=== PATIENT | male | born 1955 ===

== ENCOUNTER 2018-10-04 08:48 | Outpatient (CLI) | payer OTHER, BC | END 2018-10-04 08:49 | disposition home or self-care (01) | LOC: C.PAT 08:48 | DX: S93.622A Sprain of tarsometatarsal ligament of left foot, initial encounter (principal); S93.422A Sprain of deltoid ligament of left ankle, initial encounter; S93.432A Sprain of tibiofibular ligament of left ankle, initial encounter; S82.842A Displaced bimalleolar fracture of left lower leg, initial encounter for closed fracture; S82.832A Other fracture of upper and lower end of left fibula, initial encounter for closed fracture ==

== ENCOUNTER 2018-10-10 06:21 | Day surgery (SDC) | payer OTHER, BC ==
[2018-10-04 09:11] VITALS: BMI 31.9
[2018-10-10 07:10] VITALS: RESP 18; TEMP 97
[2018-10-10] MEDS ORDERED: ceFAZolin IV 2 gm in Dextrose 2 GM/50 ML BAG IVPB ONE (07:26)
[2018-10-10] MEDS ORDERED: Propofol 10 mg/ml Inj (20 ML) ONE (07:32)
[2018-10-10] MEDS ORDERED: Rocuronium 10 mg/ml (5 ml) ONE (07:33)
[2018-10-10] MEDS ORDERED: Midazolam 2 MG/2 ML VIAL ONE (07:34)
[2018-10-10] MEDS ORDERED: Ropivacaine 0.5% PF (20 ml) inj INJ ONE (09:48)
[2018-10-10] MEDS ORDERED: Labetalol 5mg/ml (4ml) IVP PRN (10:41)
[2018-10-10] MEDS: HYDROmorphone 0.5 mg/0.5 ml ISec IVP PRN ×4 (10:51→11:25)
[2018-10-10] MEDS ORDERED: HYDROmorphone 0.5 mg/0.5 ml ISec ONE ×2 (11:05→11:11)
--- NOTE | 2018-10-10 11:13 | PCM.SURG1 ---
Surgeon's Initial Post Op Note - Surgeon's Notes Surgeon: Anthony Esposito MD Consulting Practice Manager: Milton Lewis PA-C Type of Anesthesia: General Endo Pre-Operative Diagnosis: Left ankle/foot/Leg: #1 sydesmotic tear with grade 3 instability. #2 deltoid high grade partial tear with grade 2-3 instability. #3 Lis Franc Ligament/ complex partial tear/sprain (stable). #4 posterior maleolus min displaced fracture. #5 fibular head/ neck min displaced fracture. #6 ATFL partial tear. #7 distal tibia non-displaced distal lateral / volkman's fragment fracture Operative Findings: Left ankle/foot/Leg: #1 sydesmotic tear with grade 3 instability. #2 deltoid high grade partial tear with grade 2-3 instability. #3 Lis Franc Ligament/ complex partial tear/sprain (stable). #4 posterior maleolus min displaced fracture. #5 fibular head/ neck min displaced fracture. #6 ATFL partial tear. #7 distal tibia non-displaced distal lateral / volkman's fragment fracture. #8 peroneal brevis tendon longitudinal tear. #9 intrasubstance ganglion cyst peroneal brevis tendon Post-Operative Diagnosis: Left ankle/foot/Leg: #1 sydesmotic tear with grade 3 instability. #2 deltoid high grade partial tear with grade 2-3 instability. #3 Lis Franc Ligament/ complex partial tear/sprain (stable). #4 posterior maleolus min displaced fracture. #5 fibular head/ neck min displaced fracture. #6 ATFL partial tear. #7 distal tibia non-displaced distal lateral / volkman's fragment fracture. #8 peroneal brevis tendon longitudinal tear. #9 intrasubstance ganglion cyst/mass peroneal brevis tendon Operation Performed: Left ankle/foot/leg Open: #1 syndesmotic tear reduction & internal fixation/repair. #2 evaluation of LisFranc ligament under anesthesia/flouroscopy (stress exam= stable injury). #3 closed tx Deltoid ligament tear/ instability under anesthesia. #4 closed tx alton equiv fx (posterior mal fx/ deltoid tear - medial widening) with manipulation. #5 closed tx distal tibia intra-articular lateral - Volkman fragment fx with manipulation. #6 closed tx fibular neck fx with manipulation. #7 primary repair peroneal brevis tendon tear. #8 excisional biopsy/recstion ganglion cyst intrasubstance peroneal brevis tendon. #9 placement in well padded long leg cast Specimen/Specimens Removed: specimen= cyst/mass sent to path. tourniquet time= 10min at 300mmHg. complications= none. Implants= Arthrex syndesmotic tight rope system x2, buttress plate 2-hole x1. fiberwire surture for peroneal tendon repair Estimated Blood Loss: EBL {In ML}: 10 Blood Products Given: N/A Drains Used: No Drains Post-Op Condition: Good Date of Surgery/Procedure: 10/10/18 Time of Surgery/Procedure: 11:26
[2018-10-10 12:39] VITALS: BP 180/80; PULSE 90; O2SAT 100
--- NOTE | 2018-10-11 14:01 | RAD ---
Date of service: 10/10/2018 PROCEDURE: Intraoperative Fluoroscopy. HISTORY: LT ANKLE SYNDESMOTIC TEAR FINDINGS: Fluoroscopic assistance was provided for left ankle syndesmosis repair. Please refer to the operative report from PIA Lay , MD MEERA.
--- NOTE | 2018-10-22 17:18 | OP ---
PROCEDURE DATE: 10/10/2018 PREOPERATIVE DIAGNOSES: Left ankle/foot/le. Syndesmotic tear with grade 3 instability (acute injury). 2. Deltoid high-grade partial tear with grade 2 to 3 instability. 3. Lisfranc ligament/complex partial tear/sprain (stable). 4. Posterior malleolus minimally displaced fracture. 5. Fibular head/neck minimally displaced fracture. 6. Anterior talofibular ligament partial tear with instability. 7. Distal tibia nondisplaced distal posterolateral fracture/Volkmann fragment fracture. POSTOPERATIVE DIAGNOSES: Left ankle/foot/le. Syndesmotic acute tear with grade 3 instability. 2. Deltoid high-grade partial tear with grade 2 to 3 instability/ medial widening. (resulting bimalleolar equivalent fracture) 3. Lisfranc ligament/complex partial tear/sprain (stable). 4. Posterior malleolus large fragment, longitudinal, minimally displaced fracture. 5. Fibular head and neck minimally displaced comminuted, oblique fracture. 6. Anterior talofibular ligament partial tear with grade 1 to 2 instability. 7. Distal tibia min-displaced, unstable distal tibia intra-articular, lateral Volkmann fragment fracture. 8. Peroneal brevis tendon longitudinal tear. 9. Intrasubstance ganglion cyst/mass peroneal brevis tendon. 10. ACL partial tear with grade 2- 3 instability. PROCEDURE: Left ankle/foot/leg open: 1. Syndesmotic tear reduction and open internal fixation/repair. 2. Evaluation of Lisfranc ligament under anesthesia and fluoroscopic imaging (stress exam=stable injury). 3. Evaluation of knee / ACL partial tear under anesthesia. 4. Closed treatment bimalleolar equivalent fracture (posterior malleolus fracture with deltoid tear-medial widening) with manipulation under anesthesia. 5. Closed treatment distal tibia intraarticular lateral-Volkmann fragment intra-articular fracture with manipulation under anesthesia. 6. Closed treatment fibula neck and head fracture with manipulation under anesthesia. 7. Primary repair peroneal brevis tendon tear. 8. Excisional biopsy/resection ganglion cyst from the intrasubstance peroneal brevis location at the longitudinal tear. 9. Placement in a well-padded long-leg cast. SURGEON: Cate Cruz MD BIT WELDER: Milotn Lewis PA-C. JUSTIFICATION FOR BIT WELDER: Milton Lewis is a certified physician assistant news director whose skilled surgical services were absolute necessity for successful completion of the procedure as he provided skilled surgical assistance with positioning of the patient, positioning of extremity, management of the surgical viveros, retraction of neurovascular structures, surgical approach to the syndesmosis, preparation of distal fibula and distal tibia including placement of TightRope passage tunnels, placement of periarticular reduction clamp and reduction of syndesmosis space, passage of distal and proximal TightRope, syndesmotic fixation devices with a 2-hole lateral buttress plate, wound closure, multiple closed reductions including closed treatment bimalleolar fracture equivalent, closed treatment of deltoid ligament tear/instability, closed treatment ATFL tear/instability, closed treatment Lisfranc ligament partial tear, closed treatment fibula neck fracture with manipulation, primary repair of peroneal brevis tendon and excision of biopsy of the ganglion cyst that was intrasubstance at the location of the tear, placement of a well-padded long-leg cast. Milton Lewis was present for the entire case and was an absolute necessity for successful completion of the procedure. TYPE OF ANESTHESIA: General endotracheal anesthesia, a postop regional nerve block was not done due to the presence of a long-leg cast. SPECIMEN: Peroneal brevis cyst/mass sent to pathology. TOURNIQUET TIME: 10 minutes at 300 mmHg (tourniquet was deflated after 10 minutes and never re-inflated). COMPLICATIONS: None. SPECIMEN: Cyst/mass from peroneal brevis tendon sent to pathology. ESTIMATED BLOOD LOSS: 10 mL. DRAINS: None. DISPOSITION: The patient was extubated and transferred to PACU in stable condition and tolerated the procedure well. IMPLANTS: [employer] syndesmotic TightRope fixation system x2, 2-hole buttress plate x1, multiple FiberWire suture utilized for primary peroneal tendon repair. INDICATIONS FOR SURGERY: The patient is a 63-year-old male with a past medical history significant for hypertension, hypercholesterolemia, history of cardiac valve replacement in 2012, who presented to the office under my care for the first time on 09/25/2018 with left foot, ankle, leg/tib-fib, knee pain since an injury at work on 09/19/2018. This is a [place] Workman's Comp case with a date of injury on 09/19/2018. 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 He states that while at work on 09/19/2018, he slipped on ice landing on his left foot/ankle/leg resulting in an immediate 10/10 pain localized to the left foot/ankle/leg/knee with inability to weight bear on the left lower extremity. He went to the emergency room at [facility] the same day, after review of imaging and evaluation by ER staff, he was diagnosed with multiple contusions and sprains. He was instructed to follow up with an orthopedic surgeon as an outpatient and was placed in a posterior and U splint, given crutches, instructed to be strict nonweightbearing to the left lower extremity. The splint was removed and it was very obvious that he had severe swelling that needed to dramatically improve prior to any surgical intervention. Left ankle nonweightbearing x-rays, three-views: Joint spaces well-maintained, normal alignment, no obvious evidence of DJD, there was significant medial joint space widening, there was significant syndesmotic widening, there was a questionable fracture line at the posterior malleolus seen as a sagittal split with a large posterior malleolus fragment, minimally displaced. External rotation stress view of the left ankle was carried out by me in the office on 09/25/2018, which showed significant syndesmotic widening and medial joint space widening with the external rotation stress view. Left foot x-rays, attempted weight bearing views, joint spaces well-maintained, normal alignment, no obvious evidence of DJD, there was no Lisfranc widening seen or elevation of base of second metatarsal. Left leg/tib-fib x-rays: Normal alignment, no obvious evidence of any significant DJD. Left knee x-rays: Joint space was well maintained, normal alignment, no obvious evidence of DJD, there was comminuted, oblique minimally displaced fracture of the fibular neck extending into the head. Physical examination left foot and ankle:consistent with syndesmotic pain, Lisfranc ligament and Lisfranc joint pain, fibular head pain, posterior compartment/calf tenderness, he had significant swelling at the foot and ankle at least 2+ swelling compared to contralateral foot and ankle. 2+ anterior drawer with soft endpoint, 2+ lateral talar tilt, 2-3+ deltoid instability Physical examination left knee: 1+ swelling, + + tenderness to palpation at the fibular head and neck as well as medial joint lineno warmth no erythema, skin intact, ACL instability (mainly anterior medial bundle instability)with 2-3+ anterior boat finisher external rotation with a soft endpoint, 1-2+ anterior boat finisher neutral and internal rotation with a soft endpoint, 1-2+ Izabel, negative posterior drawer, 1+ pivot shift, limited range of motion due to pain and swelling positive Royal medial and lateral. He admitted that he was noncompliant with the nonweightbearing because he could not figure out how to use the crutches safely and correctly. On initial presentation in the office, he was referred for stat MRI left foot, left ankle, left tib-fib, left knee prior to placement of any hardware to allow for evaluation of the left foot to evaluate the Lisfranc injury and determine if it is a complete tear or if surgical intervention is indicated, stat MRI of the ankle to evaluate chondral surface distal tibia and talar dome as well as determine the degree of involvement of the distal tibial articular surface with the posterior malleolus fracture and indications for fixation of the posterior malleolus fracture, evaluate the ATFL and deltoid ligaments as well. Stat MRI of the leg/tib-fib was carried out to evaluate for the gastroc pain and rule out gastroc intrasubstance muscle tear. Left knee stat MRI was ordered to evaluate the medial and lateral menisci as well as the ACL and chondral surfaces, evaluate and better understand the fibular neck and head fracture. He was educated at length on crutch use and was actually given a prescription for a [id number] walker as well as a knee scooter. He underwent the MRIs and returned to review the MRIs at length in the office. On his initial office visit, after undergoing the external rotation stress exam and seeing the degree of swelling and the pain that the patient was in, he was fitted and placed in a fracture boot to allow for ice and elevation. He was not placed in a cast because I did not think it was safe at that [id number]. He followed up in the office on 10/02/2018 after undergoing multiple MRIs and repeat external rotation stress view of the left ankle showed that the syndesmosis was significantly worsened with significantly worst syndesmotic widening and medial joint space widening present on external rotation stress views. MRI left knee done at [facility] on September 28, 2018 was read as: 1. Complex tear posterior horn and body medial meniscus 2. Intermediate grade/partial thickness tear ACL 3. Grade 1 sprain MCL 4. Trabecular fracturing within fibular neck 5. Articular chondrosis 6. Small joint effusion and small Melchor cyst On my review of the left knee MRI, there was significant signal change within the periphery of the lateral meniscus with possible peripheral lateral meniscal tear. The ACL did appear to have a significant acute injury with both bundle showing signal change throughout and prominent signal change at the proximal attachment of the anterior medial bundle at the femoral condyle indicating most likely anterior medial bundle complete avulsion with good quality ACL fibers present. No full-thickness chondral defects seen. Plica per bands present. Complex medial meniscal tear seen. MRI left leg/tib-fib done at [facility] done on September 28, 2018 was read as: 1. Appearance in keeping with strain and low-grade partial tear of gastroc that myotendinous junction, more prominent in the lateral gastroc muscle than the medial gastroc muscle 2. No muscle retraction. No hematoma 3. Fracture through fibular neck with surrounding bone marrow edema and trabecular microfractures/comminution On my review of the left leg MRI, there was indeed gastroc tearing. MRI left foot done at [facility] on September 27, 2018 was read as: 1. Soft tissue swelling and edema within foot most pronounced dorsally 2. Grade 1 sprain Lisfranc ligament 3. No evidence of fracture, malalignment or tendon tear in the mid to forefoot on my review of the left foot MRI, there was indeed signal change at the Lisfranc ligament with no complete tear seen. MRI left ankle done at [facility] on September 27, 2018 was read as: 1. Vertically oriented fracture through posterior malleolus 2. Moderate to marked ankle sprain including grade 2 sprain of the anterior and posterior talofibular ligaments, grade 2 sprain of deltoid ligament 3. High-grade spraidesmotic ligament with high-grade partial tear of the anterior syndesmotic ligament 4. Mild to moderate changes of peroneal synovitis with intermediate grade partial thickness tear peroneus brevis On my review of the left ankle MRI, the anterior syndesmotic ligament appeared completely torn, the deltoid ligament appeared to be near completely torn with significant attenuation, peroneal brevis partial tear. The posterior malleolus fracture was indeed vertically oriented with minimal displacement. There was a secondary fracture line representing the Volkman fragment at the posterior lateral aspect of the distal tibial articular surface at the attachment of the syndesmosis. There also appeared to be a cystic structure within the peroneal tendon brevis. He was indicated for surgery for the left lower extremity consisting of open syndesmotic repair/fixation, evaluation of the Lisfranc ligament under anesthesia and fluoroscopic imaging with a stress examination to be performed, and if indicated, closed reduction and fixation of the Lisfranc ligament, possible primary deltoid ligament repair versus closed treatment with manipulation and placement in the long-leg cast, closed treatment distal tibia intraarticular distal lateral fracture/Volkmann fragment fracture with manipulation and placement in a long-leg cast, closed treatment of bimalleolar equivalent fracture consisting of the posterior malleolus fracture with a combination of a deltoid tear with medial widening and closed treatment of fibular neck and head fracture with manipulation and placement in a long-leg cast, placement in a well-padded long-leg cast at the end of the procedure and all related indicated procedures on the left lower extremity. He has good working knowledge of the [place] language but a Surinamese-speaking ice plant operator was used discussions about surgery and risks, benefits, alternatives as well as treatment plan to minimize the chances of him missing the details and maximizing his understanding of the treatment options, risks, diagnosis, and the procedures to be done. 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 After answering all his questions, he stated that he understood the risks and wished to proceed with surgery with additional risks including loss of function, loss of limb, stiffness. He watched surgical animation videos and diagnosis animation videos in Surinamese at length and stated that he had a good understanding of the procedure as well as his multiple diagnoses. I emphasized with him the need for compliance with the postop rehabilitation protocol especially with his complex injury spectrum, he stated with the use of a Surinamese speaking ice plant operator that he had a good understanding of the need for compliance with the rehab protocol in order to maximize the chance of having successful outcome after surgery. He was referred to his primary care doctor for preadmission testing and preoperative medial clearance. This was obtained without any difficulty. He was scheduled for the surgery on 10/10/2018 at [facility] PROCEDURE IN DETAIL: The patient was identified in the preoperative holding area and the left ankle/knee were marked for surgery. Once again as described above, the risks, benefits, and alternatives of surgery were discussed at length with the patient with the use of a Surinamese-speaking ice plant operator, all questions were answered and final informed consent was obtained. After a brief discussion with anesthesia staff, the patient was taken to the operating room and placed in a well-padded operating room table with a radiolucent lower extremity extension and all bony prominences and superficial neurovascular structures well-padded. An initial timeout was done with the surgeon, anesthesia staff, OR staff that the patient, procedure being done, and extremity being operated on. General anesthesia was administered with difficulty or complication. Perioperative IV antibiotics were administered. Examination under anesthesia and fluoroscopy was then carried out. EXAMINATION UNDER ANESTHESIA: LEFT knee: No swelling no warmth no erythema, skin intact, full range of motion compared to contralateral knee. There was significant ACL instability with 3+ anterior boat finisher external rotation with a soft endpoint, 2-3+ anterior boat finisher neutral and internal rotation with a soft endpoint,1-2+ Izabel with a firm endpoint, 1+ pivot shift, negative posterior drawer, negative reverse Izabel, negative reverse pivot shift, negative posterior lateral corner drawer, negative recurvatum, negative dial test. No opening to medial or lateral joint line at 0 or 30 varus or valgus stress. Patella with normal tracking, no crepitance, reproducible plica band engaging/symptomatic at 30 flexion throughout flexion arc. No patellar maltracking or instability. There was crepitance at the fibular head and neck as well. LEFT ankle: no swelling, no warmth, no erythema, no deformity, skin intact. There was 3+ anterior drawer with soft endpoint, 1+ talar tilt with firm endpoint, 2+ medial talar tilt. Full range of motion compared to contralateral ankle. EXAMINATION UNDER FLUOROSCOPY: LEFT knee: There was a comminuted, oblique displaced fibular neck fracture with extension into the head, unstable. LEFT ankle: Dynamic fluoroscopic imaging with the ankle joint at 90/neutral was taken and the mortise view while an external rotation stress was applied. Pre- and post stress images were taken as well as dynamic live imaging. There was significant syndesmotic and medial widening with external rotation stress performed under fluoroscopy confirming significant syndesmotic grade 3 instability. There was a minimally displaced posterior malleolus long oblique fracture as well as a secondary fracture line extending to the posterior lateral articular surface of distal tibia representing a Volkman fragment that appeared to be unstable. There was a Volkman fragment motion during external rotation stress exam as well. LEFT foot: Stress examination was carried out to evaluate the Lisfranc ligament stability. With the use of biplanar fluoroscopic imaging and dynamic imaging, stress examination was carried out under direct fluoroscopic imaging of the Lisfranc ligament with comparison to the contralateral foot. There was no evidence of Lisfranc instability with examination under anesthesia and fluoroscopic imaging. CONTINUATION OF PROCEDURE: Left lower extremity was prepped and draped in standard sterile fashion after tourniquet was placed high on the left thigh. A final timeout was done with the surgeon, anesthesia staff, OR staff all in agreement with the patient, procedure being done, and extremity being operated on. Left lower extremity was exsanguinated and the tourniquet was inflated for a total tourniquet time of 10 minutes at 300 mmHg. We encountered a venous tourniquet and therefore the tourniquet was deflated and the rest of the procedure was done without tourniquet. Total tourniquet time again was only 10 minutes. Incision was made starting at the posterior aspect of the distal fibula proximal to the level of the syndesmotic fixation placement extending distally so that the wound would not be directly over the syndesmotic buttons and buttress plate. Incision was placed just posterior to the distal fibula over the peroneal tendons. Incision made to skin and subcutaneous tissue while maintaining good hemostasis. Peroneal fascia was identified and the anterior aspect of the peroneal tendons were found with blunt dissection. Peroneal tendons were retracted successfully posteriorly to allow access to the lateral aspect of the distal fibula. The anterior portion of the surgical approach was then elevated and brought forward with retractors allowing access to the anterior aspect of the distal fibula/syndesmosis as well. The periosteum was then sharply excised and elevated posterior and anterior, attempt was made to preserve the periosteum as much as possible for future repair over the syndesmotic buttons and buttress plate. During the surgical approach, there was a longitudinal peroneal brevis tear identified/encountered with cystic structure interposed within the longitudinal tear fibers. Clinically, this appeared to have the characteristics of a ganglion cyst which would be resected and peroneal tendons repaired later in the procedure. We then proceeded with the syndesmotic fixation. OPEN SYNDESMOTIC REPAIR/FIXATION: Fluoroscopic imaging was taken to confirm the level of the proposed tight rope placement, the fixation hardware that would be placed for the syndesmotic repair/fixation. Surgical plan was for placement of 2 syndesmotic tight ropes with a buttress plate to avoid stress riser and fracture propagation/iatrogenic injury. Approximately 1 cm to 1.5 cm proximal to the level of the tibiotalar joint we marked out placement for the distal syndesmotic tight rope. 1 cm proximal to that would be the proximal syndesmotic tight rope. A 2-hole buttress plate from [employer] was selected and pinned into position with these 2 levels exiting the 2 holes at the 2 hole buttress plate. With the plate pinned in position attention was then turned towards placement and creation of the tunnel for the distal syndesmotic tight rope fixation passage of tight rope suture and button to distal tibia medial cortex. A large periarticular reduction clamp was placed to facilitate reduction of the syndesmosis while applying pressure to the distal fibula and the distal tibia. A small stab incision was made just over the medial malleolus tip allowing for safe placement of the sharp edge of the periarticular reduction clamp on the medial malleolus. The lateral malleolus was accessed through the laterally based surgical incision and the reduction pressure across the syndesmosis was applied and the periarticular clamp locked in position. Biplanar fluoroscopic imaging confirmed good placement of the periarticular clamp as well as maintenance of the syndesmotic reduction. Dynamic imaging was taken with repeat external rotation stress applied and there was no significant syndesmotic widening seen as the periarticular reduction clamp was maintaining a good reduction of the syndesmosis. The guidewire for the distal tight rope syndesmotic fixation device was then placed with a 20 posterior to anterior inclination level with the horizontal plane of the tibiotalar joint/parallel to the tibiotalar joint, placed through all 4 cortexes being the near fibula, far fibular cortex, near/lateral tibia cortex and exiting the far/medial tibial cortex. The position of the guidewire was confirmed to be optimal, approximately 1 cm to 1.5 cm proximal to the level of the tibiotalar joint and placed parallel to the tibiotalar joint with 20 posterior to anterior inclination. The cannulated drill was then passed over the guidewire through all 4 cortexes. The guidewire and the cannulated drill were removed and the tight rope was then passed through all 4 cortexes on the special handle. Once the medial tight rope button was seen exiting the medial cortex of the distal tibia under fluoroscopic imaging, it was released and flipped into position with no interposed soft tissue confirmed under fluoroscopic imaging in a good position. The lateral tight rope button was then advanced and the tight rope suture was cinched down. The lateral tight rope button was then well seated in the distal hole of the 2 hole buttress plate. Final tightening was carried out of the syndesmotic tight rope and attention was then turned towards placing the proximal tight rope button. The above steps were repeated once again for placement of the proximal tight rope syndesmotic fixation device. The only difference between placement of the distal and proximal tight rope syndesmotic fixation devices is that the proximal one is placed with less posterior to anterior inclination, more towards neutral/parallel to the horizontal plane-coronal plane. Guidewire was passed and confirmed with biplanar fluoroscopic imaging to be in a good position through all 4 cortexes. Cannulated drill was passed. The tight rope button was delivered and flipped on the medial cortex with no interposed soft tissue confirmed to be present. The lateral button was then advanced and cinched, placed nicely into the proximal hole of the buttress plate. Final tightening on both lateral tight rope buttons was carried out and the large periarticular reduction clamp was removed. Biplanar fluoroscopic imaging was then taken to confirm good placement of the syndesmotic fixation and the buttress plate. Dynamic fluoroscopic imaging was then taken with repeat external rotation stress carried out revealing confucianism of syndesmotic stability with no evidence of any syndesmotic residual widening or any evidence of syndesmotic instability. OPEN PERONEAL BREVIS TENDON PRIMARY REPAIR AND EXCISION CYST/MASS: With the same surgical exposure, the peroneal tendons were now brought into the surgical field after being retracted posteriorly. The peroneal brevis longitudinal tear was further evaluated. There was a 3 cm longitudinal tear starting 1 cm distal to the tip of the fibula extending distally. Peroneal tendons did not exhibit any significant instability and were well seated and stable within the peroneal sheath posterior to the distal fibula. Within the longitudinal torn fibers, there was a cystic structure measuring approximately 2 cm in width by 3 cm in length that clinically appeared to have features similar to a ganglion cyst embedded within the intrasubstance of the peroneal brevis longitudinal tear and fibers. With the use of blunt dissection with a hemostat clamp, the cyst was released from the surrounding soft tissue and carefully excised in its entirety with a cuff of normal soft tissue around it. Indeed there was gelatinous fluid within the cystic structure/mass that was kept intact. The mass was successfully excised and placed in a specimen cup and sent to pathology in formalin preservation for final analysis by pathology. Again this was a longitudinal tear within the peroneal brevis tendon. With the use of 2.0 FiberWire suture a [id number] repair was carried out successfully. A running baseball stitch was placed from distally to proximal with a successful primary repair of the peroneal brevis resulting. Once it was felt that adequate peroneal brevis repair was successfully achieved, we then proceeded with wound closure. Final fluoroscopic posterior fixation syndesmotic stress images were taken proving that syndesmotic stability was restored successfully. The wound was copiously irrigated with 1000 cc of normal saline and an antibiotic wash with Iricept. Deep tissue and fascia were reapproximated with #1 Vicryl suture, subcutaneous tissue with reapproximated with 2.0 Vicryl suture. Bernie were used for skin reapproximation. Sterile dressings were applied. We then turned our attention to the closed treatment with manipulation of the fractures. CLOSED TREATMENT WITH MANIPULATION BIMALLEOLAR EQUIVALENT FRACTURE/DISTAL TIBIA ARTICULAR FRACTURE (VOLKMAN FRAGMENT/Pilon) /FIBULAR HEAD AND NECK FRACTURE: With the use of biplanar fluoroscopic imaging, the closed reduction of the fractures of the ankle and knee were carried out successfully. Sterile cast padding was placed from the toes up to the tibial tuberosity. First, attention was turned towards the closed reduction bimalleolar equivalent (posterior malleolus with deltoid widening) and distal tibia articular surface fracture (Volkman fragment)with manipulation. A well-padded short leg cast was applied first. With the use of biplanar fluoroscopic imaging, the closed reduction of the medial joint space and posterior malleolus as well as the Volkman fragment/distal tibia articular surface fracture was carried out successfully. Once the cast hardened and a good mold was in place, repeat fluoroscopic imaging was taken confirming anatomic reduction of the medial joint space, posterior malleolus, Volkman fragment. The cast padding was continued up to the level of the proximal thigh. Well- padded cast was then placed extending the short leg cast into a long leg cast to the proximal thigh with the knee at approximately 45 flexion. The knee was placed at 45 flexion due to the patient having extreme difficulty with crutches and clearing the ground preoperatively when the knee was held in a knee immobilizer at times in extension. To help facilitate good elevation of the ankle and knee above the level of his heart as well as aid in clearing the ground and maintaining nonweightbearing to the left lower extremity, decision was made to immobilize the knee at 45 flexion. With the use of biplanar fluoroscopic imaging a close reduction of the fibular neck and head was carried out. Once the cast hardened with a good mold in position at the fibular head and neck, repeat fluoroscopic imaging confirmed anatomic reduction of the fibular head and neck. Care was taken to ensure not placing too much pressure on the peroneal nerve to avoid any resulting foot drop or peroneal nerve palsy. Once the cast hardened, the long leg cast was reinforced with 1 more layer of cast tape. Once the cast hardened overall, final fluoroscopic imaging were taken of the fractures confirming anatomic reduction of the posterior malleolus, medial joint space, Volkman fragment/distal tibia articular fracture, fibular head and neck fracture. The patient was then extubated and transferred to PACU in stable condition. Examination in PACU: I personally examined the patient in PACU/recovery. The left lower extremity was in a well-padded long leg cast. He had +5/5 motor strength EHL, FHL, all toes up and down. He had sensory intact deep peroneal nerve/superficial peroneal nerve/tibial nerve and medial and lateral aspect of all toes/tibial and fibular aspect of all toes. Prior to the long leg cast being placed, he demonstrated 2+ dorsalis pedis and posterior tibialis pulses confirmed with Doppler. In PACU, brisk cap refill all toes. peroneal nerve was intact. DISPOSITION: Once he is recovered from anesthesia, he will be discharged home. He has been educated at length on proper cast care. He has been given a prescription for Percocet for pain control. He will be started on DVT prophylaxis in the form of Lovenox 40 mg subcutaneous injection once daily starting postoperative day #1. He is instructed to be strict nonweightbearing left lower extremity at all times. He is instructed to keep the left ankle and knee elevated above the level of his heart as much as possible. He will contact me directly with any questions or concerns. He will follow-up in my office at [facility] for his postoperative follow-up within 1 week and already has his postoperative appointment set up. Anthony Esposito MD [facility]
== END 2018-10-10 12:55 | disposition home or self-care (01) ==
LOC: C.SDS 06:21
PROVIDERS: ATTEND Student in an Organized Health Care Education/Training Program
DX: S93.432A Sprain of tibiofibular ligament of left ankle, initial encounter (principal); S93.422A Sprain of deltoid ligament of left ankle, initial encounter; S93.622A Sprain of tarsometatarsal ligament of left foot, initial encounter; S82.842A Displaced bimalleolar fracture of left lower leg, initial encounter for closed fracture; S82.832A Other fracture of upper and lower end of left fibula, initial encounter for closed fracture; X58.XXXA Exposure to other specified factors, initial encounter; Y93.89 Activity, other specified; Y92.69 Other specified industrial and construction area as the place of occurrence of the external cause
CPT/HCPCS: 27695; 27768; 27781; 29827; 88305; C1713; J0690; J1170; J2250; J2704; J3010; J7120